=== PATIENT | female | born 1960 | race Caucasian/White ===

== ENCOUNTER → 2017-05-02 | Outpatient (CLI) | payer OTHER ==
--- NOTE | 2017-05-05 14:06 | SLEEPCENT ---
DATE OF STUDY: 05/02/2017 ORDERED BY: Dotty Mead Nocturnal polysomnography was performed for reevaluation of sleep apnea syndrome symptoms in this patient with obstructive sleep apnea previously titrated to pressure therapy. For this test, the patient was fit a [employer] Wisp nasal mask of standard size and 10 cm of water pressure were applied to the circuit and the lights were extinguished. 8 hours and 7 minutes of data were reviewed. There were 385 minutes of sleep identified. Sleep latency was 38 minutes. Rapid eye movement (REM) latency was 338 minutes. Sleep architecture was poor with poor sleep progression. Three was 1 REM period appreciated late in the study. Overall sleep efficiency was 79.8%. The patient's electrocardiogram (EKG) showed a sinus rhythm with an average heart rate of 55 beats per minute. Electroencephalogram (EEG) showed some artifactual change and some coarsening in background, otherwise normal waveforms for awake and sleep. Respiratory events were fully palliated with CPAP at a pressure of +10. There was significant limb activity appreciated, particularly early in the study. There were 3 trains of 30 events and limb movement arousal index was 14.2. IMPRESSION: 1. Obstructive sleep apnea syndrome (G47.33. 2. Periodic limb movement disorder (G47.61), limb movement arousal index 14.2. RECOMMENDATION: Nightly use of pressure therapy at 10 cm of water should be sufficient to address the patient's respiratory events. Interventions to reduce the frequency or arousal from limb activity may improve quality of the patient's sleep.
== END ==
LOC: M SLEEP 20:00
PROVIDERS: ATTEND Nurse Practitioner Adult Health
DX: G47.33 Obstructive sleep apnea (adult) (pediatric) (principal)

== ENCOUNTER → 2019-02-19 | Outpatient (REF) | payer OTHER | LOC: M LAB LCGH 09:16 | PROVIDERS: ATTEND Family Medicine | DX: N95.2 Postmenopausal atrophic vaginitis (principal) ==

== ENCOUNTER → 2023-09-03 | Outpatient (CLI) | payer OTHER | LOC: M SOG 13:52 | PROVIDERS: ATTEND Orthopaedic Surgery Hand Surgery | DX: M79.644 Pain in right finger(s) (principal); R22.41 Localized swelling, mass and lump, right lower limb ==

== ENCOUNTER 2023-09-20 08:21 | Day surgery (SDC) | payer OTHER ==
[~2023-09-20] VITALS: Ht 157.5 cm; Wt 104.3 kg
[~2023-09-20 08:21] MED LIST: B-122500 PO; BUPR-71 PO; GNPTAB36 PO; LEVO50TA5 PO; RAME8TAB2 PO; SERT50TA29 PO; THERTAB52 PO; TIRZ2.5P; VITA500C24 PO; ceFAZolin SOD 2 GM in IV 1 EA IV ONE
[2023-09-20] MEDS ORDERED: BACITRACIN OINTMENT 30GM TUBE As Ordered ONE (09:07)
[2023-09-20] MEDS ORDERED: LIDOCAINE 2% 100MG/5ML SDV (FOR ANES.) As Ordered ONE (09:13)
[2023-09-20] MEDS ORDERED: propofoL 200 MG/20 ML VIAL As Ordered ONE (09:13)
[2023-09-20] MEDS ORDERED: MIDAZOLAM INJ 2MG/2ML VIAL As Ordered ONE (09:14)
[2023-09-20] MEDS ORDERED: fentaNYL 100 MCG/2 ML INJECTION As Ordered ONE (09:14)
[2023-09-20] MEDS ORDERED: ACETAMINOPHEN 1000MG 100ML IV BAG As Ordered ONE (09:14)
[2023-09-20] MEDS ORDERED: ONDANSETRON 4MG 2ML VIAL As Ordered ONE (09:14)
[2023-09-20] MEDS ORDERED: LR 1,000 ML IV SCH (09:35)
[2023-09-20] MEDS ORDERED: ROCURONIUM BROMIDE 50MG/5ML VIAL As Ordered ONE (09:40)
[2023-09-20] MEDS ORDERED: ceFAZolin 2 GM/D5W 50 ML IV BAG As Ordered ONE (09:52)
[2023-09-20] MEDS ORDERED: KETOROLAC 60MG 2ML VIAL As Ordered ONE (10:10)
[2023-09-20] MEDS ORDERED: SUGAMMADEX SODIUM 500 MG/5 ML VIAL (BRIDION) As Ordered ONE (10:15)
[2023-09-20] MEDS ORDERED: TRAM50TA2 PO (10:40)
[2023-09-20] MEDS ORDERED: HYDROMORPHONE HCL 0.5 MG/ 0.5 ML SYRINGE IV PRN (11:05)
[2023-09-20] MEDS ORDERED: ONDANSETRON 4MG 2ML VIAL IV PRN (11:05)
[2023-09-20] MEDS ORDERED: oxyCODONE 5MG TAB PO PRN (11:05)
[2023-09-20] MEDS ORDERED: fentaNYL 100 MCG/2 ML INJECTION IV PRN (11:05)
[2023-09-20 11:16] VITALS: BP 122/79; TEMP 98.5; O2SAT 96
== END 2023-09-20 11:46 | disposition home or self-care (01) ==
LOC: M SDC 08:21
PROVIDERS: ATTEND Orthopaedic Surgery Hand Surgery
DX: D18.01 Hemangioma of skin and subcutaneous tissue (principal); G47.33 Obstructive sleep apnea (adult) (pediatric); F41.9 Anxiety disorder, unspecified; F32.A Depression, unspecified; Z98.84 Bariatric surgery status; E11.9 Type 2 diabetes mellitus without complications; E03.9 Hypothyroidism, unspecified; Z79.899 Other long term (current) drug therapy
CPT/HCPCS: 11421; 88305; J0665; J0690; J1100; J1885; J2250; J2405; J3010